=== PATIENT | female | born 2000 | race Caucasian/White ===

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

== ENCOUNTER 2020-06-07 22:31 | Outpatient (REF) | payer OTHER, SELFPAY ==
[2020-06-09 12:34] LABS: COVID-19 RT-PCR UVMMC Result Negative (Negative)
== END 2020-06-07 22:32 | disposition home or self-care (01) ==
LOC: NCHCN 22:31
PROVIDERS: PCP Nurse Practitioner Family; Visit Provider Nurse Practitioner Family
DX: Z20.822 Contact with and (suspected) exposure to COVID-19 (principal); J02.9 Acute pharyngitis, unspecified
CPT/HCPCS: U0003

== ENCOUNTER 2021-01-05 15:21 | Outpatient (REF) | payer OTHER, SELFPAY ==
--- NOTE | 2021-01-05 11:30 | PAPFT_PTH ---
PATIENT: Kamala Anderson LOC: [facility] U#:[id number] AGE/SX: 20/F ROOM: RE01/05/[address]: Tayler Persaud : 2000 BED: DIS: 01/05/2021 SPEC #: [id number] RECD: 01/08/21 13:08 STATUS: EVELYN REJustino #: [id number] DENNIS: 01/05/21 11:[address]: Tayler Persaud DEPT: [facility] Cytology RECD BY: Haritha Perez Tissues: 1 - CX/ENDOCX FOR PAP SMEARS Procedures: PAP THIN PREP/[facility] Screening Comments: [id number] (CHLAMYDIA/GC)
[2021-01-10 07:23] LABS: Chlamydia Result Negative (Negative); GC Result Negative (Negative)
== END 2021-01-05 15:22 | disposition home or self-care (01) ==
LOC: NCHCN 15:21
PROVIDERS: PCP Nurse Practitioner Family; Visit Provider Nurse Practitioner Family
DX: Z12.4 Encounter for screening for malignant neoplasm of cervix (principal); Z11.3 Encounter for screening for infections with a predominantly sexual mode of transmission; Z01.419 Encounter for gynecological examination (general) (routine) without abnormal findings
CPT/HCPCS: 87491; 87591; 88142

== ENCOUNTER → 2021-03-24 14:49 | Outpatient (CLI) | payer OTHER, SELFPAY ==
--- NOTE | 2021-03-24 | DI.RAD_ITS ---
Exam(s) XR SHOULDER RT COMPLETE 2+V EXAM: XR SHOULDER RT COMPLETE 2+V CLINICAL HISTORY: PAIN. TECHNIQUE: 2D digital imaging was performed. COMPARISON: No exams were available for comparison FINDINGS: BONES: No acute fracture is present. No bony destructive lesion is seen. JOINTS: No dislocation present. SOFT TISSUE: Normal. IMPRESSION: Unremarkable radiographs of the right shoulder. DATA REPOSITORY: RADIATION DOSE DELIVERED:
--- NOTE | 2021-03-24 15:08 | DI.VRAD_ITS ---
PROCEDURE INFORMATION: Exam: XR Right Shoulder Exam date and time: 03/24/2021 2:52 PM Age: 20 years old Clinical indication: Pain; Shoulder; Right TECHNIQUE: Imaging protocol: XR Right shoulder. Views: 2 or more views. COMPARISON: CR RIGHT CLAVICLE 12/07/2015 8:43 AM FINDINGS: Bones/joints: Osseous anatomic alignment is well preserved. No acutely displaced fracture or dislocation. Joint spaces are well preserved. Soft tissues: There is no significant soft tissue swelling. Visualized chest is unremarkable. IMPRESSION: No acute skeletal pathology. Dictated and Authenticated by: Ulysses Navarrete MD. Ordering:SOFÍA Iverson MD
== END ==
PROVIDERS: PCP Nurse Practitioner Family; Visit Provider Family Medicine
DX: M25.511 Pain in right shoulder (principal)
CPT/HCPCS: 73030

== ENCOUNTER 2021-05-03 18:14 | Outpatient (REF) | payer OTHER, SELFPAY ==
[2021-05-05 11:55] LABS: COVID-19 RT-PCR UVMMC Result Negative (Negative)
== END 2021-05-03 18:15 | disposition home or self-care (01) ==
LOC: LBN 18:14
PROVIDERS: PCP Nurse Practitioner Family; Visit Provider Physician Assistant Medical
DX: Z20.822 Contact with and (suspected) exposure to COVID-19 (principal); R51.9 Headache, unspecified; R42 Dizziness and giddiness
CPT/HCPCS: U0003

== ENCOUNTER 2023-11-27 19:07 | Outpatient (REF) | payer BC, SELFPAY ==
[2023-11-27 14:30] LABS: HCT 43.2 % (36.0-46.0); HGB 14.5 g/dL (11.2-15.7); MCHC 33.6 % (32.0-36.0); MCV 86 fL (80-95); MPV 11.7 fL (8.0-11.0); Platelet Count 243 10^3/uL (130-400); RDW 12.5 % (11.7-14.6); RDW-SD 39.2 fL; WBC 7.85 10^3/uL (4.4-10.8)
[2023-11-27 15:02] LABS: ALT 18 U/L (14-59); AST 12 U/L (15-37); Albumin 3.1 g/dL (3.4-5.0); Alkaline Phosphatase 69 U/L (46-116); Anion Gap 7.2 mmol/L (3-11); BUN 9 mg/dL (7-18); Bilirubin, Total 0.25 mg/dL (0.2-1.0); CO2 27.8 mmol/L (21.0-32.0); CREATININE 0.7 mg/dL (0.55-1.02); Calcium 8.8 mg/dL (8.5-10.1); Chloride 105 mmol/L (98-107); Estimated GFR 123.78 (mL/min/1.73m2); Glucose 97 mg/dL (74-106); Potassium 3.8 mmol/L (3.5-5.1); Sodium 140 mmol/L (136-145)
== END 2023-11-27 19:08 | disposition home or self-care (01) ==
LOC: NCHCN 19:07
PROVIDERS: PCP Nurse Practitioner Family; Visit Provider Nurse Practitioner Family
DX: R23.3 Spontaneous ecchymoses (principal)
CPT/HCPCS: 80053; 85027

== ENCOUNTER 2024-06-03 17:48 | Emergency (ER) | payer OTHER, SELFPAY ==
[2024-06-03 17:51] VITALS: BP 138/82; PULSE 78; RESP 16; TEMP 36.6; O2SAT 98
--- NOTE | 2024-06-03 18:00 | DI.RAD_ITS ---
Exam(s) XR ANKLE RT COMPLETE EXAM: XR ANKLE RT COMPLETE CLINICAL HISTORY: right ankle. TECHNIQUE: 2D digital imaging was performed of the right ankle. Three images were obtained. AP, la teral and oblique views were obtained. COMPARISON: CR RIGHT ANKLE COMPLETE from 05/23/2014 FINDINGS: BONES: No acute fracture is present. No bony destructive lesion is seen. JOINTS: The ankle mortise is normally aligned. SOFT TISSUE: Normal. IMPRESSION: Unremarkable radiographs of the right ankle. DATA REPOSITORY: RADIATION DOSE DELIVERED:
[2024-06-03] MEDS: Ibuprofen 600 MG TAB PO (18:13)
--- NOTE | 2024-06-03 20:22 | ED.GENADUL_ITS ---
Discharge Plan Disposition Patient Disposition: Home Condition: Stable Discharge Details Clinical Impression: Right ankle pain Primary Care Provider: Tayler Persaud ED Provider: Nico Valdes Home Meds and New Rx's Prescriptions: No Action albuterol sulfate 90 mcg/actuation HFA aerosol inhaler 2 puff IH QID PRN (Reason: shortness of breath or wheezing) Qty: 8.5 0RF (DME) Aerochamber MV spacer See Dose Instructions .Route .MEDSUPPLY Qty: 1 0RF Dose Instruction: As directed Rx Instructions: As directed topiramate 50 mg tablet 50 mg PO QHS Qty: 90 3RF sertraline 50 mg tablet 50 mg PO DAILY prochlorperazine maleate 5 mg tablet See Rx Instructions PO TID PRN (Reason: nausea and vomiting or headache) Qty: 30 0RF Rx Instructions: 5-10mg orally three times a day PRN; sumatriptan succinate 100 mg tablet See Rx Instructions PO .COMPLEX Qty: 9 5RF Rx Instructions: take 1 tab at onset of headache; if no relief, may repeat 1 tab after at least 2 hrs; max = 2 tabs/24 hrs PO norgestimate-ethinyl estradiol [Estarylla] 0.25-35 mg-mcg tablet 1 tab PO DAILY pantoprazole [Protonix] 20 mg tablet,delayed release (DR/EC) 20 mg PO DAILY Discharge Instructions Instructions: Ankle sprain Additional Instructions: X-ray does not demonstrate a fracture of your ankle. Please wear walking boot for comfort. Weightbearing as tolerated, take your foot out of the boot every hour and spell the alphabet, this will help your recovery. Continue Motrin and Tylenol as needed. HPI General Date/Time Provider Initiated Documentation: 06/03/24 17:55 . Limitations to Documentation: no limitations . Information obtained by: patient . HPI Narrative: 23-year-old female without significant past medical history presents for evaluation of right ankle pain. She reports that she fell last week and rolled her ankle. She reports some mild symptoms but was otherwise ambulatory and able to walk. The patient reports that today she also twisted her ankle again and now has worsened pain and worsened swelling. She localizes the swelling and pain more to the outside of her right ankle. Pain is worse with walking though she is able to bear weight. She has not tried any medications for symptom relief. He is Related Data Home Medications ?Medication ?Instructions ?Recorded ?Confirmed albuterol sulfate 90 mcg/actuation 2 puff inhalation QID PRN 01/28/18 06/03/24 aerosol inhaler shortness of breath or wheezing #8.5 grams inhalational spacing device #1 ea 01/28/18 06/03/24 (Aerochamber MV spacer) norgestimate 0.25 mg-ethinyl 1 tab PO DAILY 03/29/21 06/03/24 estradiol 35 mcg tablet (Estarylla) pantoprazole 20 mg tablet,delayed 20 mg PO DAILY 08/18/23 06/03/24 release (Protonix) sertraline 50 mg tablet 50 mg PO DAILY 02/24/24 06/03/24 prochlorperazine maleate 5 mg See Rx Instructions PO TID PRN 02/25/24 06/03/24 tablet nausea and vomiting or headache #30 tabs sumatriptan succinate 100 mg tablet See Rx Instructions PO .COMPLEX #9 02/25/24 06/03/24 tabs topiramate 50 mg tablet 50 mg PO QHS #90 tabs 05/06/24 06/03/24 Previous Rx's ?Medication ?Instructions ?Recorded albuterol sulfate 90 mcg/actuation 2 puff inhalation QID PRN 01/28/18 aerosol inhaler shortness of breath or wheezing #8.5 grams inhalational spacing device #1 ea 01/28/18 (Aerochamber MV spacer) prochlorperazine maleate 5 mg See Rx Instructions PO TID PRN 02/25/24 tablet nausea and vomiting or headache #30 tabs sumatriptan succinate 100 mg tablet See Rx Instructions PO .COMPLEX #9 02/25/24 tabs topiramate 50 mg tablet 50 mg PO QHS #90 tabs 05/06/24 Allergies Allergy/AdvReac Type Severity Reaction Status Date / Time epinephrine Allergy Unknown SHORTNESS Verified 06/03/24 17:54 OF BREATH pineapple Allergy Unknown Anaphylaxis Verified 06/03/24 17:54 General Stated Complaint: Orthopedic SATINDER: 4 Exam Narrative Exam Narrative: Review of Systems: All systems reviewed & are unremarkable except as noted in HPI and below Well-developed, no acute distress Unlabored respiratory effort Right knee unremarkable no effusion nontender, proximal tibial head nontender, no tenderness throughout the lower leg or calf, lateral malleolus is swollen and tender no significant bruising, no obvious deformity, there is generalized tenderness of the ankle but no swelling or bruising noted Course Vital Signs Vital signs: Vital Signs Temperature 36.6 C 06/03/24 17:51 Pulse 78 06/03/24 17:51 Respiratory Rate 16 06/03/24 17:51 Blood Pressure 138/82 06/03/24 17:51 Pulse Oximetry 98 06/03/24 17:51 Temperature 36.6 C 06/03/24 17:51 Pulse 78 06/03/24 17:51 Respiratory Rate 16 06/03/24 17:51 Blood Pressure 138/82 06/03/24 17:51 Pulse Oximetry 98 06/03/24 17:51 Pain Level 3 06/03/24 19:18 Lab/Test Results Lab/Test Results: POC Urine Test Start: 06/03/24 17:57 Freq: .Urine Test Status: Complete Protocol: Document 06/03/24 18:02 CB (Rec: 06/03/24 18:02 [id number]) Test(Urine)-POC POC- Test(urine) Negative POC- Test(urine) Negative Medical Decision Making Emergent evaluation of right ankle pain after rolling injury. No obvious deformity or bruising, there is some mild swelling and tenderness. X-ray imaging was obtained and there is no acute fracture. She was placed in a walking boot for comfort. Instructions on rehab and symptom improvement provided. Recommend continued Motrin and Tylenol for symptom relief. Follow-up with PCP as needed. Quality:SDOH Health Related Social Needs: No Data to Display PFSH All Active Problems Right ankle pain (Acute) Syncope (Chronic) Vestibular migraine (Acute) Migraine headache without aura (Acute) Hypersomnia (Acute) Chronic headache (Acute) Benign positional vertigo (Acute) Depression (Chronic) Asthma, exercise induced (Acute) Anxiety (Acute 07/31/15) Behavior concern (Acute 04/16/12) Irregular periods (Acute 07/31/15) School problem (Acute 04/16/12) Medical History Exercise induced bronchospasm Dizziness and giddiness Thoracic spine pain GERD (gastroesophageal reflux disease) Cellulitis and abscess of face Periapical abscess Skin lesion Anxiety and depression Self-harming behavior Headache, unspecified Back pain Closed left clavicular fracture at Behavior problem in child Surgical History No pertinent past surgical history Family History Mother Anxiety no treatments needed Diabetes Other Diabetes MGF, MGM Essential hypertension MGF Heart disease MGF Hyperlipidemia MGF Neoplasm PGF-stomach Other Myocardial infarction Social History Smoking/Tobacco Use Status: Former Tobacco Use Smoking risk assessment performed?: Yes Alcohol Intake: current Alcohol Intake frequency: a few times a month Alcohol type: hard liquor Drug use: Never Household members: none Number of Children: 0 current occupation: Childcare Pets and animals: Yes Pets and animals: dog(s)
--- NOTE | 2024-06-09 06:52 | NUR.NOTE ---
Accessed Pt chart to document diagnosis on the [facility] paperwork.
== END 2024-06-03 19:23 | disposition home or self-care (01) ==
LOC: ER 19:00
PROVIDERS: Emergency Provider Emergency Medicine; PCP Nurse Practitioner Family
DX: S93.401A Sprain of unspecified ligament of right ankle, initial encounter (principal); Z87.891 Personal history of nicotine dependence; X50.1XXA Overexertion from prolonged static or awkward postures, initial encounter; Y93.89 Activity, other specified; Y92.89 Other specified places as the place of occurrence of the external cause; Y99.0 Civilian activity done for income or pay
CPT/HCPCS: 81025; 99284; 73610; 99283

== ENCOUNTER 2024-09-15 10:06 | Outpatient (REF) | payer OTHER, SELFPAY ==
--- NOTE | 2024-09-15 08:20 | PAPFT_PTH ---
PATIENT: Kamala Anderson LOC: [facility] U#:[id number] AGE/SX: 23/F ROOM: RE09/15/[address]: Tayler Persaud : 2000 BED: DIS: 09/15/2024 SPEC #: [id number] RECD: 09/15/24 18:34 STATUS: EVELYN REJustino #: [id number] DENNIS: 09/15/24 08:[address]: Tayler Persaud DEPT: [facility] Cytology RECD BY: Haritha Perez Tissues: 1 - CX/ENDOCX FOR PAP SMEARS Procedures: PAP THIN PREP/[facility] Screening Comments: [id number]
== END 2024-09-15 10:07 | disposition home or self-care (01) ==
LOC: NCHCN 10:06
PROVIDERS: PCP Nurse Practitioner Family; Visit Provider Nurse Practitioner Family
DX: Z12.4 Encounter for screening for malignant neoplasm of cervix (principal); Z00.00 Encounter for general adult medical examination without abnormal findings; Z01.419 Encounter for gynecological examination (general) (routine) without abnormal findings
CPT/HCPCS: 88142; 87624

== ENCOUNTER 2025-03-16 10:08 | Outpatient (REF) | payer OTHER, SELFPAY ==
[2025-03-16 15:46] LABS: Abs Immature Grans 0.02 10^3/uL (0.0-0.06); HCT 45.0 % (36.0-46.0); HGB 15.3 g/dL (11.2-15.7); Immature Grans % 0.2 %; MCH 29.3 pg (27.0-33.0); MCHC 34.0 % (32.0-36.0); MCV 86 fL (80-95); MPV 12.0 fL (8.0-11.0); Platelet Count 240 10^3/uL (130-400); RBC 5.22 10^6/uL (3.93-5.22); RDW 12.4 % (11.7-14.6); RDW-SD 38.6 fL; WBC 8.01 10^3/uL (4.4-10.8)
[2025-03-16 16:17] LABS: ALT 12 U/L (10-49); AST 18 U/L (<34); Albumin 4.0 g/dL (3.2-5.0); Alkaline Phosphatase 86 U/L (46-116); Anion Gap 11.4 mmol/L (3-11); BUN 9 mg/dL (9-23); Bilirubin, Total 0.4 mg/dL (0.2-1.2); CO2 22.6 mmol/L (20.0-31.0); Calcium 8.7 mg/dL (8.3-10.6); Chloride 109 mmol/L (98-107); Cholesterol 201 mg/dL (<200); Glucose 80 mg/dL (74-106); HDL Cholesterol 64 mg/dL (>or=50); Potassium 3.6 mmol/L (3.5-5.1); Sodium 143 mmol/L (136-145); Total Protein 7.1 g/dL (5.7-8.2)
[2025-03-16 16:23] LABS: Hemoglobin A1C 5.1 % (<5.7)
[2025-03-16 16:32] LABS: Iron 110 ug/dL (50-170); Total Iron Binding Capacity 345 ug/dL (250-425); Transferrin Sat 32 % (15-50)
[2025-03-16 16:42] LABS: Vitamin B12 543 pg/mL (211-911)
== END 2025-03-16 10:09 | disposition home or self-care (01) ==
LOC: NCHCN 10:08
PROVIDERS: PCP Nurse Practitioner Family; Visit Provider Nurse Practitioner Family
DX: R51.9 Headache, unspecified (principal); E66.9 Obesity, unspecified; G62.9 Polyneuropathy, unspecified
CPT/HCPCS: 80053; 80061; 82607; 83036; 83540; 83550; 85025